=== PATIENT | male | born 1960 | race Caucasian/White ===

== ENCOUNTER 2019-12-17 09:45 | Outpatient (CLI) | payer OTHER, SELFPAY ==
[2019-12-17 10:32] LABS: Basophils Absolute Auto 0.1 K/mm3 (0.0-0.1); Basophils Percent Auto 1.2 % (0.2-1.2); Eosinophils Absolute Auto 0.3 K/mm3 (0-0.3); Eosinophils Percent Auto 3.7 % (0-4.4); Hematocrit 44.1 % (42.0-52.0); Hemoglobin 15.1 g/dL (14.0-18.0); Immature Granulocyte Absolute 0.03 K/mm3 (0.00-0.031); Immature Granulocyte Percent A 0.4 % (0-0.5); Lymphocytes Absolute Auto 2.58 K/mm3 (0.9-3.2); Lymphocytes Percent Auto 33.3 % (18.3-44.2); Mean Corpuscular HGB Conc 34.2 g/dl (32-36); Mean Corpuscular Hemoglobin 30.5 pg (26-34); Mean Corpuscular Volume 89.1 fl (80-100); Mean Platelet Volume 9.8 fl (7.4-10.4); Monocytes Absolute Auto 0.6 K/mm3 (0.1-0.6); Monocytes Percent Auto 7.2 % (2.6-8.5); Neutrophils Absolute Auto 4.2 K/mm3 (1.3-6.7); Neutrophils Percent Auto 54.2 % (45.5-73.1); Platelet Count Result 356 k/mm3 (150-375); Red Blood Count 4.95 M/mm3 (4.6-6.20); Red Cell Distribution Width 13.9 % (11.5-14.5); White Blood Count 7.8 K/mm3 (4.5-10.0)
[2019-12-17 10:50] LABS: Alanine Aminotransferase 27 U/L (4-50); Albumin Level 4.7 g/dL (3.5-5.1); Alkaline Phosphatase 72 U/L (38-126); Anion Gap 8 mmol/L (8-16); Aspartate Amino Transferase 29 U/L (17-59); Bilirubin,Total 0.6 mg/dL (0.2-1.3); Blood Urea Nitrogen 11 mg/dL (9-20); Carbon Dioxide 23 mmol/L (22-30); Chloride 108 mmol/L (98-107); Cholesterol 238 mg/dL (0-200); Estimated Glomerular Filt Rate > 60; Glucose 98 mg/dL (75-110); HDL Direct 58 mg/dL; Potassium 4.4 mmol/L (3.4-5.0); Sodium 139 mmol/L (137-145); Triglycerides 135 mg/dL (<150)
[2019-12-17 11:01] LABS: LDL Cholesterol Direct 141 mg/dL
[2019-12-17 11:19] LABS: Prostate Specific Antigen 1.2 ng/mL (< OR = 4.0)
== END 2019-12-17 09:46 | disposition home or self-care (01) ==
PROVIDERS: PCP Internal Medicine; Referring Provider Nurse Practitioner; Visit Provider Clinical Nurse Specialist
DX: J44.9 Chronic obstructive pulmonary disease, unspecified (principal); Z12.5 Encounter for screening for malignant neoplasm of prostate
CPT/HCPCS: 36415; 80053; 80061; 84153; 85025; G0103

== ENCOUNTER 2020-11-28 18:12 | Emergency (ER) | payer OTHER, SELFPAY ==
--- NOTE | ~2020-11-28 | XR_ITS ---
EXAMINATION: XR hand LT min 3V DATE: 11/28/2020 18:29 INDICATION: Left thumb pain. Fall. TECHNIQUE: 3 views of left hand were obtained. COMPARISON: None. FINDINGS: Bone alignment is normal. No fracture. There is severe osteoarthritis of first carpometacar pal joint, moderate osteoarthritis of third metacarpophalangeal joint, second distal interphalangeal joint, and fifth proximal interphalangeal joint, and mild osteoarthritis of some the other metacarpop halangeal joints and interphalangeal joints. IMPRESSION: 1. Polyarticular osteoarthritis. Reviewed, dictated and finalized at location A.
--- NOTE | 2020-11-28 18:18 | ED.UPPEXIN ---
HPI - Extremity Injury (Upper) General Chief Complaint: Extremity Injury, Upper Stated Complaint: lt thumb inj Time Seen by Provider: 11/28/20 18:18 Source: patient, family and RN notes reviewed History of Present Illness HPI narrative: Patient is a 60-year-old male who presents the urgent care with a family member with complaints of left hand/thumb/wrist pain. Patient states that prior to arrival he was going up 3 steps on his back deck and fell backwards, catching himself with his left hand. Patient states he bent his thumb all the way backwards and is having a lot of pain in the thumb. Patient has not done anything [id number] for his pain since the incident. Also reports of a laceration to the right hand due to the fall. No other acute complaints. No acute distress noted. Patient and family member aware of the plan of care. Some parts of this dictation were generated by voice recognition software and may contain typographical and/or grammatical inaccuracies. Related Data Home Medications Medication Instructions Recorded Confirmed albuterol sulfate 90 mcg/actuation 2 puff INHALATION Q4H PRN g 07/09/20 aerosol inhaler amitriptyline 50 mg tablet 50 mg PO QHS 07/09/20 ibuprofen 200 mg tablet 400 mg PO .4-6 hrs PRN tablet 07/09/20 loratadine 10 mg capsule 10 mg PO DAILY 07/09/20 Allergies Allergy/AdvReac Type Severity Reaction Status Date / Time dill oil Allergy Severe ANAPHYLACTI Verified 06/16/19 07:42 C Penicillins Allergy Severe Anaphylaxis Verified 06/16/19 07:42 mold Allergy Intermediate SINUS Verified 06/16/19 07:42 DRAINAGE Review of Systems Review of Systems: CONSTITUTIONAL: Denies fever, chills, or sweats. EYES: Denies visual changes, redness, or discharge. ENT: Denies rhinorrhea, congestion, sore throat, or otalgia. CARDIOVASCULAR: Denies chest pain, palpitations, or edema. RESPIRATORY: Denies cough or dyspnea. GASTROINTESTINAL: Denies abdominal pain, nausea, vomiting, or diarrhea. GENITOURINARY: Denies dysuria or hematuria. SKIN: Reports of a laceration to the right hand. Denies rash or itching. MUSCULOSKELETAL: Reports of left thumb/wrist/hand pain due to fall NEUROLOGIC: Denies headache, numbness, or weakness. All other systems reviewed are negative, except as documented in HPI. 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 Surgical History Surgical History (Updated 06/13/19 @ 13:05 by Doris Mesa MA) H/O brain surgery Family History Family History (Updated 06/10/19 @ 13:34 by Nellie Zuniga CMA) Mother Patient's mother is in good health Sibling Patient's brother is in good health Father Family history of heart disease in male family member before age 55 Carotid artery stenosis CHF (congestive heart failure) Daughter Cerebrovascular accident Other Family history of allergic disorder Social History Social History Smoking status: Never smoker Alcohol intake: never Comments At the time of my signature, I reviewed and agree with the nursing past medical, surgical, social, and family history. There is no relevant family history pertinent to the patient complaint. Exam Narrative: GENERAL: This is a well-nourished, well-developed patient, in no apparent distress. HEAD: normocephalic, atraumatic. EYES: PERRL. Sclera clear/white. Vision is grossly intact. EARS: External ears normal NOSE: External nose normal with no obvious nasal discharge, nares without redness, no rhinorrhea. THROAT: Mucous membranes moist NECK: Neck supple CARDIOVASCULAR: Regular rate and rhythm RESPIRATORY: Clear to auscultation. Breath sounds equal bilaterally.
[2020-11-28 18:39] VITALS: BP 125/84; PULSE 95; RESP 18; TEMP 35.8; O2SAT 99
== END 2020-11-28 18:54 | disposition home or self-care (01) ==
PROVIDERS: Emergency Provider Nurse Practitioner Family; PCP Internal Medicine
DX: M18.9 Osteoarthritis of first carpometacarpal joint, unspecified (principal); S61.411A Laceration without foreign body of right hand, initial encounter; W10.9XXA Fall (on) (from) unspecified stairs and steps, initial encounter; M19.042 Primary osteoarthritis, left hand; J44.9 Chronic obstructive pulmonary disease, unspecified; F32.9 Major depressive disorder, single episode, unspecified; R01.1 Cardiac murmur, unspecified
CPT/HCPCS: 12002; 73130; 99213; G0463

== ENCOUNTER 2021-01-20 17:01 | Emergency (ER) | payer OTHER, SELFPAY ==
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
[2021-01-20 17:00] VITALS: BP 108/83; PULSE 79; RESP 16; TEMP 36.7; O2SAT 100
[2021-01-20] MEDS: KETOROLAC 30 MG/ML VIAL (*BKC) IV PUSH (18:24)
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
== END 2021-01-20 18:55 | disposition home or self-care (01) ==
PROVIDERS: Emergency Provider Emergency Medicine; PCP Internal Medicine
DX: S16.1XXA Strain of muscle, fascia and tendon at neck level, initial encounter (principal); R07.89 Other chest pain; J44.9 Chronic obstructive pulmonary disease, unspecified; M19.90 Unspecified osteoarthritis, unspecified site; F32.A Depression, unspecified; M24.411 Recurrent dislocation, right shoulder; M47.812 Spondylosis without myelopathy or radiculopathy, cervical region; V43.62XA Car passenger injured in collision with other type car in traffic accident, initial encounter
CPT/HCPCS: 71046; 71100; 72125; 73030; 73552; 96374; 99284; J1885

== ENCOUNTER 2022-01-23 23:19 | Inpatient (IN) | payer OTHER, SELFPAY ==
--- NOTE | ~2022-01-23 | CT_ITS ---
EXAMINATION: CT abdomen pelvis w con DATE: 01/24/2022 01:24 INDICATION: Low abdominal mass. TECHNIQUE: Computed tomography (CT) of the abdomen and pelvis was performed with 100 mL Omnipaque 350 intravenous contrast. Automated exposure control and iterative reconstruction technique were employe d. The dose-length product was 250.96 mGy-cm. COMPARISON: None. FINDINGS: The visualized portions of the lung bases demonstrate mild atelectasis. No pleural effusion . The heart size is normal. No pericardial effusion. There is a small right posterior diaphragmatic h ernia containing fat. There is a 5 mm cyst in the liver. The gallbladder, spleen, pancreas, adrenal g lands, and kidneys are normal. There is diverticulosis of the colon without evidence of diverticuliti s. The appendix is not visualized. There is a left-sided spigelian hernia containing small bowel. Sma ll bowel is dilated proximal to the hernia. There are no pathologically enlarged lymph nodes. There is no free intraperitoneal fluid. There is mild lumbar spondylosis. IMPRESSION: 1. Small bowel obstruction secondary to a left-sided spigelian hernia. Reviewed, dictated and finalized at location B.
[2022-01-23 23:35] VITALS: BP 126/81; PULSE 91; RESP 16; TEMP 36.4; O2SAT 100
[2022-01-24] VITALS (12 sets, daily range): BP systolic 116–144; BP diastolic 67–92; PULSE 62–88; RESP 10–22; TEMP 35.7–36.7; O2SAT 97–100
--- NOTE | 2022-01-24 00:18 | ED.ABDPAIN ---
HPI - Abdominal Pain General Chief Complaint: Abdominal Pain Stated Complaint: left inguinal edema Time Seen by Provider: 01/24/22 00:01 History of Present Illness HPI narrative: 61-year-old male presents emergency room for evaluation of left lower abdominal pain. Patient states the pain suddenly began earlier this evening. Patient is a history of a left inguinal hernia repair. Reports feeling a bump that is tender with palpation. Denies any nausea, vomiting diarrhea or constipation. Related Data Home Medications Medication Instructions Recorded Confirmed loratadine 10 mg capsule (Claritin 10 mg PO DAILY 07/09/20 08/01/21 Liqui-Gel) Allergies Allergy/AdvReac Type Severity Reaction Status Date / Time dill oil Allergy Severe ANAPHYLACTI Verified 01/23/22 23:39 C Penicillins Allergy Severe Anaphylaxis Verified 01/23/22 23:39 mold Allergy Intermediate SINUS Verified 01/23/22 23:39 DRAINAGE Review of Systems Review of Systems: CONSTITUTIONAL: Denies fever, chills, or sweats. EYES: Denies visual changes, redness, or discharge. ENT: Denies rhinorrhea, congestion, sore throat, or otalgia. CARDIOVASCULAR: Denies chest pain, palpitations, or edema. RESPIRATORY: Denies cough or dyspnea. GASTROINTESTINAL: Reports abdominal pain GENITOURINARY: Denies dysuria or hematuria. SKIN: Denies rash or itching. MUSCULOSKELETAL: Denies back pain, joint pain, or myalgia. NEUROLOGIC: Denies headache, numbness, dizziness, or weakness. PSYCHIATRIC: Denies anxiety or depression. 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 HEAD: Normocephalic, atraumatic. EYES: Conjunctivae normal, PERRLA and EOMI. CHEST: Clear to auscultation. No respiratory distress. No wheezes rales or rhonchi. No tenderness. HEART: Regular rate and rhythm. No murmur heard. Normal peripheral pulses. ABDOMEN: Soft, left lower palpable painful mass, nondistended, normal active bowel sounds. EXTREMITIES: Normal range of motion. No edema. No clubbing or cyanosis SKIN: Warm, dry, no rash. No noted wounds NEURO: No focal deficits. Alert and oriented x3. MAEW. CN's II-XI intact bilaterally, normal gait PSYCH: Cooperative. Normal mood and affect. Course Vital Signs Vital signs: Vital Signs Temperature 36.4 C 01/23/22 23:35 Pulse Rate 91 01/23/22 23:35 Respiratory Rate 16 01/23/22 23:35 Blood Pressure 126/81 01/23/22 23:35 Pulse Oximetry 100 01/23/22 23:35 Oxygen Delivery Room Air 01/23/22 23:35 Temperature 36.4 C 01/23/22 23:35 Pulse Rate 91 01/23/22 23:35 Respiratory Rate 16 01/23/22 23:35 Blood Pressure 126/81 01/23/22 23:35 Pulse Oximetry 100 01/23/22 23:35 Oxygen Delivery Room Air 01/23/22 23:35 MDM - Abdominal Pain Imaging Data Radiologist's impression: High-grade small bowel obstruction
[2022-01-24 00:37] LABS: Basophils Absolute Auto 0.1 K/mm3 (0.0-0.1); Basophils Percent Auto 0.9 % (0.2-1.2); Eosinophils Absolute Auto 0.2 K/mm3 (0-0.3); Eosinophils Percent Auto 2.5 % (0-4.4); Hematocrit 36.8 % (42.0-52.0); Hemoglobin 12.3 g/dL (14.0-18.0); Immature Granulocyte Absolute 0.01 K/mm3 (0.00-0.031); Immature Granulocyte Percent A 0.1 % (0-0.5); Lymphocytes Absolute Auto 2.52 K/mm3 (0.9-3.2); Mean Corpuscular HGB Conc 33.4 g/dl (32-36); Mean Corpuscular Hemoglobin 31.4 pg (26-34); Mean Corpuscular Volume 93.9 fl (80-100); Mean Platelet Volume 9.1 fl (7.4-10.4); Monocytes Absolute Auto 0.8 K/mm3 (0.1-0.6); Monocytes Percent Auto 9.3 % (2.6-8.5); Neutrophils Absolute Auto 4.6 K/mm3 (1.3-6.7); Neutrophils Percent Auto 56.2 % (45.5-73.1); Platelet Count Result 294 k/mm3 (150-375); Red Blood Count 3.92 M/mm3 (4.6-6.20); Red Cell Distribution Width 13.6 % (11.5-14.5); White Blood Count 8.1 K/mm3 (4.5-10.0)
[2022-01-24 00:48] LABS: Alanine Aminotransferase 21 U/L (6-50); Albumin Level 4.2 g/dL (3.5-5.1); Alkaline Phosphatase 46 U/L (38-126); Anion Gap 7 mmol/L (8-16); Aspartate Amino Transferase 31 U/L (17-59); Bilirubin,Total 0.6 mg/dL (0.2-1.3); Blood Urea Nitrogen 10 mg/dL (9-20); Calcium 8.8 mg/dL (8.4-10.2); Carbon Dioxide 26 mmol/L (22-30); Chloride 103 mmol/L (98-107); Estimated CRCL calculation 75 ml/min; Estimated Glomerular Filt Rate > 60; Glucose 101 mg/dL (65-110); Potassium 4.1 mmol/L (3.4-5.0); Sodium 136 mmol/L (137-145)
[2022-01-24] MEDS: HYDROmorphone HCL INJ (*CRX) 1 MG/ML SYR IV PUSH ×3 (00:54→09:00)
[2022-01-24] MEDS: SODIUM CHLORIDE 0.9% IV 1,000 ML 999 ML IV CONT (00:55)
[2022-01-24 02:18] LABS: Add Urine Microscopic? NO; Appearance Urine Clear (Clear); Bilirubin Urine Negative (Negative); Blood Urine Negative (Negative); Color Urine Yellow (Yellow); Glucose Urine UA Negative (Negative); Ketones Urine Negative (Negative); Leukocyte Esterase Ur Negative LEU/UL (Negative); Nitrate Urine Negative (Negative); Protein Urine Negative (Negative); Urobilinogen Urine Negative mg/dL (<2.0)
[2022-01-24 03:21] LABS: SARS-CoV-2 RNA PCR Negative
[2022-01-24] MEDS: SODIUM CHLORIDE 0.9% IV 1,000 ML 125 ML IV CONT ×2 (03:34→11:46)
--- NOTE | 2022-01-24 04:36 | ADMGEN ---
This patient, Jacky Arechiga, was admitted to [facility] Surg Room 309-01. Patient/family oriented to hospital policies and general routines including ID bracelet, bed and alarms, visiting hours, pain management, procedures, bathroom and other care routines, personal items, smoking policy, room service/diet, and visiting hours. Information on how to activate the Rapid Response Team has been discussed. Patient/Family are encouraged to report perceived risks to care and to ask questions if they do not understand what they are told or what they should do.
[2022-01-24 08:07] LABS: Hematocrit 35.9 % (42.0-52.0); Hemoglobin 12.1 g/dL (14.0-18.0); Mean Corpuscular HGB Conc 33.7 g/dl (32-36); Mean Corpuscular Hemoglobin 31.7 pg (26-34); Mean Platelet Volume 9.2 fl (7.4-10.4); Platelet Count Result 287 k/mm3 (150-375); Red Blood Count 3.82 M/mm3 (4.6-6.20); Red Cell Distribution Width 13.5 % (11.5-14.5); White Blood Count 9.4 K/mm3 (4.5-10.0)
[2022-01-24 08:26] LABS: Anion Gap 9 mmol/L (8-16); Blood Urea Nitrogen 8 mg/dL (9-20); Calcium 8.3 mg/dL (8.4-10.2); Carbon Dioxide 25 mmol/L (22-30); Chloride 104 mmol/L (98-107); Estimated CRCL calculation 280 ml/min; Estimated Glomerular Filt Rate > 60; Glucose 100 mg/dL (65-110); Potassium 3.8 mmol/L (3.4-5.0); Sodium 138 mmol/L (137-145)
[2022-01-24] MEDS: TOPIRAMATE 100 MG TABLET PO (09:00)
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
[2022-01-24] MEDS: LACTATED RINGERS 1,000 ML 30 ML IV CONT ×2 (13:00→16:17)
--- NOTE | 2022-01-24 13:22 | WPDANESEPPF ---
Anes - Initial Pre Proc Eval Procedure: Operation Date: 01/24/22 14:00 Proposed Procedures p Laparoscopic Repair Incarcerated Spighelian Hernia Left Lower Quadrant - Eagle Elder MD Date/Time: 01/24/22 13:22 Surgeon: Eagle Elder MD Pre Op Diagnosis: SBO Patient Data Age: 61 Gender: M Height: 1.78 m Weight: 67.3 kg Last Vital Signs Temp 36.7 C 01/24/22 13:00 Pulse 72 01/24/22 13:00 Resp 18 01/24/22 13:00 BP 134/83 01/24/22 13:00 Pulse Ox 98 01/24/22 13:00 O2 Del Method Room Air 01/24/22 13:00 Allergies Allergy/AdvReac Type Severity Reaction Status Date / Time dill oil Allergy Severe ANAPHYLACTI Verified 01/24/22 05:16 C Penicillins Allergy Severe Anaphylaxis Verified 01/24/22 05:16 mold Allergy Intermediate SINUS Verified 01/24/22 05:16 DRAINAGE Home Medications Medication Instructions Recorded Confirmed Type loratadine 10 mg capsule (Claritin 10 mg PO DAILY 07/09/20 01/24/22 History Liqui-Gel) sildenafil 50 mg tablet 50 mg PO DAILY PRN sexual activity 08/01/21 01/24/22 Rx #10 tabs cyclobenzaprine 10 mg tablet 10 mg PO TID PRN muscle spasm #20 08/22/21 01/24/22 Rx tabs albuterol sulfate 90 mcg/actuation 2 puff inhalation Q6H PRN 01/24/22 01/24/22 History aerosol inhaler Shortness Of Breath amitriptyline 50 mg tablet 50 mg HS 01/24/22 01/24/22 History naproxen 375 mg tablet 375 mg PO BID 01/24/22 01/24/22 History omeprazole 40 mg capsule,delayed 40 mg PO HS 01/24/22 01/24/22 History release topiramate 100 mg tablet 100 mg PO BID 01/24/22 01/24/22 History umeclidinium 62.5 mcg-vilanterol 1 inh inhalation DAILY 01/24/22 01/24/22 History 25 mcg/actuation powdr for inhalation (Anoro Ellipta) Laboratory Tests 01/24/22 01/24/22 01/24/22 00:32 00:32 02:04 WBC 8.1 K/mm3 K/mm3 (4.5-10.0) RBC 3.92 M/mm3 L M/mm3 (4.6-6.20) Hgb 12.3 g/dL L g/dL (14.0-18.0) Hct 36.8 % L % (42.0-52.0) MCV 93.9 fl fl (80-100) MCH 31.4 pg pg (26-34) MCHC 33.4 g/dl g/dl (32-36) RDW 13.6 % % (11.5-14.5) Plt Count 294 k/mm3 k/mm3 (150-375) MPV 9.1 fl fl (7.4-10.4) Immature Gran % (Auto) 0.1 % % (0-0.5) Neut % (Auto) 56.2 % % (45.5-73.1) Lymph % (Auto) 31.0 % % (18.3-44.2) Snyder % (Auto) 9.3 % H % (2.6-8.5) Eos % (Auto) 2.5 % % (0-4.4) Baso % (Auto) 0.9 % % (0.2-1.2) Lymph # (Auto) 2.52 K/mm3 K/mm3 (0.9-3.2) Snyder # (Auto) 0.8 K/mm3 H K/mm3 (0.1-0.6) Eos # (Auto) 0.2 K/mm3 K/mm3 (0-0.3) Baso # (Auto) 0.1 K/mm3 K/mm3 (0.0-0.1) Abs Immat Gran (auto) 0.01 K/mm3 K/mm3 (0.00-0.031) Absolute Neuts (auto) 4.6 K/mm3 K/mm3 (1.3-6.7) Absolute Nucleated RBC 0.0 K/mm3 K/mm3 (0.0-0.012) Nucleated RBC % 0.0 % % (0.0-0.2) Sodium 136 mmol/L L mmol/L (137-145) Potassium 4.1 mmol/L mmol/L (3.4-5.0) Chloride 103 mmol/L mmol/L (98-107) Carbon Dioxide 26 mmol/L mmol/L (22-30) Anion Gap 7 mmol/L L mmol/L (8-16) BUN 10 mg/dL mg/dL (9-20) Creatinine 0.90 mg/dL mg/dL (0.7-1.3) Estim Creat Clear Calc 75 ml/min ml/min Estimated GFR > 60 (59 - ) Glucose 101 mg/dL mg/dL (65-110) Calcium 8.8 mg/dL mg/dL (8.4-10.2) Total Bilirubin 0.6 mg/dL mg/dL (0.2-1.3) AST 31 U/L U/L (17-59) ALT 21 U/L U/L (6-50) Alkaline Phosphatase 46 U/L U/L (38-126) Total Protein 7.0 g/dL g/dL (6.3-8.2) Albumin 4.2 g/dL g/dL (3.5-5.1) Urine Color Yellow (Yellow) Urine Appearance Clear (Clear) Urine pH 6.0 (5.0-9.0) Ur Specific [place] 1.030 (1.001-1.035) Urine Protein Negative mg/dL
--- NOTE | 2022-01-24 13:42 | WPDHPUPDATE1 ---
History and Physical Update Update Date/Time: 01/24/22 13:42 History and Physical has been reviewed, including an updated exam of the patient. There are NO changes in the patient's condition. Risks, benefits, and alternatives have been discussed and questions answered. Patient agrees to proceed with procedure.
[2022-01-24] MEDS: ceFAZolin 2 GM/D5W 50 ML 2 GM/50 ML BAG IVPB (14:00)
[2022-01-24] MEDS: BUPIVACAINE/EPINEPHRINE 0.25% 50 ML VIAL INFILTRATE (14:42)
--- NOTE | 2022-01-24 16:37 | W.PM.PROC2 ---
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 CT scan showed an incarcerated spigelian hernia with small-bowel obstruction. He was given analgesics and admitted. Although his abdomen felt better he continued to have a non reducible incarcerated spigelian hernia. Findings A loop of ileum was incarcerated in the very small spigelian hernia defect. This was a partial rather than a full loop of small bowel consistent with a Sheriff's type hernia. There was a lot of properitoneal fat in the spigelian hernia defect as well. The defect was small measuring 1 cm x 0.6 cm in the left lower quadrant. There was no evidence of bowel infarction. Description of Procedure The patient was taken to surgery and induced into general anesthesia. The abdomen was prepped and draped. Initial trocar was a left subcostal 5 mm applied Medical optical trocar. We gained intraperitoneal access and then insufflated. I then placed a right-sided subcostal trocar under direct visualization. This was also a 5 mm trocar. In the mid abdomen another 5 mm trocar was placed. In the right lower quadrant a 10 11 trocar was placed. We placed the camera and operated exclusively through the right-sided trocars and insufflated through the left upper quadrant trocar. The hernia defect was easily found as there was small bowel incarcerated within it. Using a noncrushing type laparoscopic clamp, I gently reduced the small bowel. I took some photographs of it but it was clearly viable and was only part of the small bowel wall that was stuck in the hernia. I then reduced the peritoneum leading into the hernia defect. I incised this perineum and then reduced quite a bit of chronically incarcerated properitoneal fat. Once this tissue was entirely reduced, I took a photograph of this. I had also taken photographs of the defect with the incarcerated small bowel. I then divided the peritoneal attachments to the incarcerated hernia material and removed it from the abdomen. This was sent to the pathologist as spigelian hernia content. I then marked the location of the hernia defect on the skin using a 22 gauge needle and a marker. I chose the Ventralight ST 10 by 15 cm mesh. I placed the mesh so that it was obliquely oriented over the hernia defect. I marked on the ioban covering the skin the outline of mesh. I then marked the planned transfascial sutures on the skin. I placed 4 2-0 Stephenson-Jhonny sutures he quit distant on the Ventralight ST mesh for the transfascial sutures. I marked on the peritoneal side of the mesh so that I could oriented in the abdomen. I then rolled the mesh and introduced it into the abdominal cavity. I unrolled it and oriented it appropriately. Using the OpenRent suture pass device, I brought out each of the 4 transfascial sutures at the previously marked sites. I pulled up on the sutures as each were being passed. The positioning was good and the mesh was in good position and laying flat in the left lower quadrant. Once the transfascial sutures were in place, I stopped insufflation and evacuated CO2 from the abdominal cavity. I tied down each of the 4 transfascial sutures. I then reinsufflated the abdomen. Using the Opti Fix AT articulating absorbable fixation System I then tacked the mesh to the abdominal wall using the double crown technique. We did have some bleeding from 1 of the tacks. I removed this tack from the abdominal wall. The bleeding gently subsided. I did
[2022-01-24] MEDS: NAPROXEN 375 MG TABLET PO (17:54)
[2022-01-24] MEDS: LACTATED RINGERS 1,000 ML 80 ML IV CONT (17:54)
[2022-01-24] MEDS: MORPHINE SULFATE (*CRX) 2 MG/ML INJ IV PUSH (20:17)
[2022-01-24] MEDS: AMITRIPTYLINE HCL 25 MG TABLET 50 MG PO (20:35)
[2022-01-24] MEDS: HYDROcodone/acetaminophen (*CRX) 10-325 MG TABLET 1 TAB PO (21:40)
[2022-01-24] MEDS: MORPHINE SULFATE (*CRX) 4 MG/ML INJ IV PUSH (22:45)
[2022-01-25 03:06] VITALS: BP 136/76; PULSE 70; RESP 16; TEMP 36.2; O2SAT 99
[2022-01-25] MEDS: MORPHINE SULFATE (*CRX) 4 MG/ML INJ IV PUSH ×3 (06:13→14:33)
[2022-01-25 06:38] LABS: Hematocrit 29.4 % (42.0-52.0); Hemoglobin 9.9 g/dL (14.0-18.0); Mean Corpuscular HGB Conc 33.7 g/dl (32-36); Mean Corpuscular Hemoglobin 31.8 pg (26-34); Mean Corpuscular Volume 94.5 fl (80-100); Mean Platelet Volume 9.8 fl (7.4-10.4); Platelet Count Result 346 k/mm3 (150-375); Red Blood Count 3.11 M/mm3 (4.6-6.20); Red Cell Distribution Width 13.6 % (11.5-14.5); White Blood Count 13.3 K/mm3 (4.5-10.0)
[2022-01-25 07:04] LABS: Anion Gap 13 mmol/L (8-16); Blood Urea Nitrogen 11 mg/dL (9-20); Calcium 7.9 mg/dL (8.4-10.2); Carbon Dioxide 22 mmol/L (22-30); Chloride 100 mmol/L (98-107); Estimated CRCL calculation 81 ml/min; Estimated Glomerular Filt Rate > 60; Glucose 125 mg/dL (65-110); Potassium 3.9 mmol/L (3.4-5.0); Sodium 135 mmol/L (137-145)
--- NOTE | 2022-01-25 07:47 | WPDANESPN ---
Anes - Prog Note Post-Op Date/Time: 01/25/22 07:47 Cardiovascular status: normal Respiratory status: normal Airway patency: baseline Mental status: baseline Post-Op hydration status: normal Vital Signs: Last Vital Signs Temp 36.2 C L 01/25/22 03:06 Pulse 70 01/25/22 03:06 Resp 16 01/25/22 03:06 BP 136/76 01/25/22 03:06 Pulse Ox 99 01/25/22 03:06 O2 Del Method Room Air 01/24/22 20:00 O2 Flow Rate 6 01/24/22 16:45 Pain Score (VAS): 10/16 I/O: Intake & Output 01/24/22 01/24/22 01/25/22 15:59 23:59 07:59 Intake Total 1050 400 Output Total 575 450 Balance 1050 -175 -450 Laboratory Tests 01/25/22 06:00 01/25/22 06:00 01/24/22 01/24/22 01/25/22 08:00 08:00 06:00 WBC 9.4 13.3 H RBC 3.82 L 3.11 L Hgb 12.1 L 9.9 L Hct 35.9 L 29.4 L MCV 94.0 94.5 MCH 31.7 31.8 MCHC 33.7 33.7 RDW 13.5 13.6 Plt Count 287 346 MPV 9.2 9.8 Sodium 138 Potassium 3.8 Chloride 104 Carbon Dioxide 25 Anion Gap 9 BUN 8 L Creatinine 0.80 Estim Creat Clear Calc 280 Estimated GFR > 60 Glucose 100 Calcium 8.3 L 01/25/22 06:00 WBC RBC Hgb Hct MCV MCH MCHC RDW Plt Count MPV Sodium 135 L Potassium 3.9 Chloride 100 Carbon Dioxide 22 Anion Gap 13 BUN 11 Creatinine 0.80 Estim Creat Clear Calc 81 Estimated GFR > 60 Glucose 125 H Calcium 7.9 L Post-procedural complaints: nausea (which was treated in the PACU) Patient Feedback: Patient satisfied with anesthetic care.
[2022-01-25 08:00] VITALS: PULSE 70; RESP 16; O2SAT 99
[2022-01-25] MEDS: LORATADINE 10 MG TABLET PO (09:03)
[2022-01-25] MEDS: NAPROXEN 375 MG TABLET PO ×2 (09:03→16:56)
[2022-01-25] MEDS: PANTOPRAZOLE 40 MG TABLET PO (09:03)
[2022-01-25] MEDS: ENOXAPARIN 40 MG/0.4 ML SYRINGE SUB-Q (09:03)
[2022-01-25 14:27] VITALS: BP 117/64; PULSE 99; RESP 18; TEMP 36.2; O2SAT 100
[2022-01-25 19:06] VITALS: BP 127/65; PULSE 106; RESP 18; TEMP 36.1; O2SAT 98
[2022-01-25] MEDS: AMITRIPTYLINE HCL 25 MG TABLET 50 MG PO (21:04)
[2022-01-25] MEDS: HYDROcodone/acetaminophen (*CRX) 10-325 MG TABLET 1 TAB PO (21:07)
[2022-01-25 22:14] VITALS: BP 127/65; PULSE 106; RESP 18; TEMP 36.1; O2SAT 98
[2022-01-26 02:50] VITALS: BP 111/53; PULSE 93; RESP 18; TEMP 36.1; O2SAT 98
[2022-01-26 06:08] VITALS: BP 102/66; PULSE 94; RESP 18; TEMP 36.1; O2SAT 99
[2022-01-26 06:31] LABS: Hematocrit 21.6 % (42.0-52.0); Hemoglobin 7.4 g/dL (14.0-18.0); Mean Corpuscular HGB Conc 34.3 g/dl (32-36); Mean Corpuscular Hemoglobin 31.6 pg (26-34); Mean Corpuscular Volume 92.3 fl (80-100); Mean Platelet Volume 9.6 fl (7.4-10.4); Platelet Count Result 231 k/mm3 (150-375); Red Blood Count 2.34 M/mm3 (4.6-6.20); Red Cell Distribution Width 13.6 % (11.5-14.5); White Blood Count 7.6 K/mm3 (4.5-10.0)
[2022-01-26 06:49] LABS: Anion Gap 6 mmol/L (8-16); Blood Urea Nitrogen 10 mg/dL (9-20); Calcium 7.8 mg/dL (8.4-10.2); Carbon Dioxide 26 mmol/L (22-30); Chloride 106 mmol/L (98-107); Estimated CRCL calculation 73 ml/min; Estimated Glomerular Filt Rate > 60; Glucose 100 mg/dL (65-110); Sodium 138 mmol/L (137-145)
[2022-01-26 08:00] VITALS: PULSE 94; RESP 18; O2SAT 98
--- NOTE | 2022-01-26 08:29 | PM.DS ---
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: Qualifiers: Encounter type: sequela Qualified Code(s): S04.012S - Injury of optic nerve, left eye, sequela Code(s): S04.012A - Injury of optic nerve, left eye, initial encounter Status: Chronic (3) COPD (chronic obstructive pulmonary disease): Qualifiers: COPD type: unspecified COPD Qualified Code(s): J44.9 - Chronic obstructive pulmonary disease, unspecified Code(s): J44.9 - Chronic obstructive pulmonary disease, unspecified Status: Chronic DS: Summary Hospital Course Hospital Course: patient presented to the emergency room on 01/24/2022 with severe abdominal pain and a tender mass in the left lower quadrant. CT scan showed a left spigelian hernia that was incarcerated with a loop of bowel and small bowel obstruction. The patient was taken to surgery on the day of admission and underwent laparoscopic repair of the left spigelian hernia with 10 x 15 cm underlay mesh. He was having considerable amount of postoperative pain on postop day 1., requiring IV analgesics. He was much more comfortable on postop day 2. . He was more stable as for is ambulating and using only oral pain medication. He was able to be discharged on 01/26/2022 in improved condition. Status at Discharge Functional status at discharge: independent ambulation Overall status at discharge: patient is progressing back to baseline Time Spent with Patient Time attestation: Total time spent providing and/or coordinating discharge services: Time spent: Less than 30 minutes DS: Data Data Completed and Pending Pending studies at discharge: Pending at discharge 01/24/22 15:30 Surgical [PTH] Routine Labs on day of discharge: Labs from last 24 hours 01/26/22 01/26/22 06:20 06:20 WBC 7.6 RBC 2.34 L Hgb 7.4 L Hct 21.6 L MCV 92.3 MCH 31.6 MCHC 34.3 RDW 13.6 Plt Count 231 MPV 9.6 Sodium 138 Potassium 4.0 Chloride 106 Carbon Dioxide 26 Anion Gap 6 L BUN 10 Creatinine 0.90 Estim Creat Clear Calc 73 Estimated GFR > 60 Glucose 100 Calcium 7.8 L Discharge Plan Discharge Attending physician on discharge: Eagle Elder Discharging Clinician: Eagle Elder Anticipated Discharge Date/Time: 01/26/22 12:00 Patient Disposition: Home, Self-Care Activity: may shower, no straining and as tolerated Diet: as tolerated and regular Wound Care Instructions: incision open to air Discharge Instructions: Ambulate 3-4 x per day and as tolerated. No lifting over 15-20lbs. May bathe or shower. Stairs are OK. May drive a car in [address] Elder in 2 weeks Patient Instructions: Antibiotic Form, Pain Management (DC) Stand Alone Forms: General Discharge Information Follow-up/Referrals: Eagle Elder MD [Physician] - 2 Weeks ( call office for appointment) Discharge Medications: New hydrocodone-acetaminophen 5-325 mg tablet 1 - 2 tablet PO Q6H PRN (Reason: pain) Qty: 30 0RF Continued sildenafil 50 mg tablet 50 mg PO DAILY PRN (Reason: sexual activity) Qty: 10 0RF Rx Instructions: administer 30 minutes to 4 hours before activity loratadine [Claritin Liqui-Gel] 10 mg capsule 10 mg PO DAILY amitriptyline 50 mg tablet 50 mg HS albuterol sulfate 90 mcg/actuation HFA aerosol inhaler 2 puff INHALATION Q6H PRN (Reason: Shortness Of Breath) naproxen 375 mg tablet
[2022-01-26] MEDS: LORATADINE 10 MG TABLET PO (08:35)
[2022-01-26] MEDS: PANTOPRAZOLE 40 MG TABLET PO (08:35)
[2022-01-26] MEDS: ENOXAPARIN 40 MG/0.4 ML SYRINGE SUB-Q (08:35)
[2022-01-26] MEDS: NAPROXEN 375 MG TABLET PO (08:35)
[2022-01-26 10:51] VITALS: O2SAT 98
[2022-01-26 13:49] VITALS: BP 108/69; PULSE 88; RESP 20; TEMP 36.4; O2SAT 100
--- NOTE | 2022-01-26 16:31 | PM.PNGS ---
Progress Note: A&P Assessment and Plan (1) Dehiscence of closure of skin: Code(s): T81.31XA - Disruption of external operation (surgical) wound, not elsewhere classified, initial encounter Status: Acute Assessment and Plan: wound is clean. I removed the Exofin adhesive. I cleaned the entire area with peroxide to remove any old blood. The area was then dried. I used benzoin and half-inch Steri-Strips to reclosed the incision. It looked quite good. 4 x 4 dry gauze dressing with Medipore tape was applied. Patient was offered to stand the night so that this could be observed or go home. He would prefer to go home. Wound care instructions were given. I do not feel this will be a further problem for him as long as he follows the instructions. Subjective Subjective Date/Time Seen: 01/26/22 16:31 Interval history: Skin separation with bleeding right lower quadrant trocar site. When patient went to stand up, the right lower quadrant trocar site that the skin. Some old blood drained. He is seen regarding this new problem. Exam GI: Inspection: abdominal wall ecchymosis, incision ( 1-2 mm skin separation right lower quadrant trocar site. ) and other ( small amount of old blood on dressing) Objective Data Vital Signs Vital Signs: Vital Signs - 24 hr 01/25/22 19:06 01/25/22 22:14 01/25/22 20:00 Temperature 36.1 C L 36.1 C L Pulse Rate 106 H 106 H Respiratory Rate 18 18 Blood Pressure 127/65 127/65 Pulse Oximetry 98 98 Oxygen Delivery Room Air 01/26/22 02:50 01/26/22 06:08 01/26/22 10:51 Temperature 36.1 C L 36.1 C L Pulse Rate 93 94 Respiratory Rate 18 18 Blood Pressure 111/53 L 102/66 Pulse Oximetry 98 99 98 Oxygen Delivery Room Air 01/26/22 08:00 01/26/22 13:49 Temperature 36.4 C L Pulse Rate 94 88 Respiratory Rate 18 20 Blood Pressure 108/69 Pulse Oximetry 98 100 Oxygen Delivery Room Air Intake/Output Intake/Output: Intake & Output 01/23/22 01/24/22 01/25/22 01/26/22 23:59 23:59 23:59 23:59 Intake Total 2450 920 730 Output Total 575 3350 Balance 1873 -5667 730 Meds/Results Medications: Active Medications Generic Name Dose Route Start Last Admin Trade Name Freq PRN Reason Stop Dose Admin Acetaminophen 500 mg 01/24/22 17:21 Acetaminophen 500 Mg Tablet PO Q6H PRN Mild Pain (1-3) or Fever Hydrocodone Bitart/Acetaminophen 1 tab 01/24/22 17:21 Hydrocodone/Acetaminophen (*Crx) 5-325 Mg Tablet PO Q4H PRN Pain Rated 4-6 Hydrocodone Bitart/Acetaminophen 1 tab 01/24/22 17:21 01/25/22 21:07 Hydrocodone/Acetaminophen (*Crx) 10-325 Mg Tablet PO 1 tab Q4H PRN Administration Pain Rated 7-10 Amitriptyline HCl 50 mg 01/24/22 21:00 01/25/22 21:04 Amitriptyline Hcl 25 Mg Tablet PO 50 mg HS BRYAN Administration Cyclobenzaprine HCl 10 mg 01/24/22 17:21 Cyclobenzaprine Hcl 10 Mg Tablet PO TID PRN muscle spasm Enoxaparin Sodium 40 mg 01/25/22 09:00 01/26/22 08:35 Enoxaparin 40 Mg/0.4 Ml Syringe SUB-Q 40 mg DAILY BRYAN Administration Loratadine 10 mg 01/25/22 09:00 01/26/22 08:35 Loratadine 10 Mg Tablet PO 10 mg DAILY BRYAN Administration Morphine Sulfate 2 mg 01/24/22 17:21 01/24/22 20:17 Morphine Sulfate (*Crx) 2 Mg/Ml Inj IV PUSH 2 mg Q2H PRN Administration Pain Rated 4-6 Morphine Sulfate 4 mg 01/24/22 17:21 01/25/22 14:33 Morphine Sulfate (*Crx) 4 Mg/Ml Inj IV PUSH 4 mg Q2H PRN Administration Pain Rated 7-10 Naloxone HCl 0.1 mg 01/24/22 17:21 Naloxone Hcl 0.4 Mg/Ml Vial IV PUSH Q2M PRN Opiate Reversal Naproxen 375 mg 01/24/22 17:21 01/26/22 08:35 Naproxen 375 Mg Tablet PO 375 mg BID BRYAN Administration Ondansetron HCl 4 mg 01/24/22 02:40 Ondansetron Inj 4 Mg/2 Ml Vial IV PUSH Q4H PRN Nausea Pantoprazole Sodium 40 mg 01/25/22 09:00 01/26/22 08:35 Pantoprazole 40 Mg Tabl
[2022-01-26] MEDS: HYDROcodone/acetaminophen (*CRX) 10-325 MG TABLET 1 TAB PO (16:48)
[2022-01-26] MEDS: HYDROGEN PEROXIDE 3% SOLN(*SP) 473 ML BOTTLE (16:49)
== END 2022-01-26 17:12 | disposition home or self-care (01) | DRG 227 ==
LOC: ANHED 01-24 02:39 → ANH3MEDSUR 01-24 03:44
PROVIDERS: Admitting Provider Surgery; Emergency Provider Nurse Practitioner Family; PCP Internal Medicine; Visit Provider Surgery
PROC: 0WUF4JZ Supplement Abdominal Wall with Synthetic Substitute, Percutaneous Endoscopic Approach (ICD-10-PCS; principal; 2022-01-24 14:00)
DX: K43.6 Other and unspecified ventral hernia with obstruction, without gangrene (principal); S04.012 Injury of optic nerve, left eye; Y84.2 Radiological procedure and radiotherapy as the cause of abnormal reaction of the patient, or of later complication, without mention of misadventure at the time of the procedure; T81.31XA Disruption of external operation (surgical) wound, not elsewhere classified, initial encounter; J44.9 Chronic obstructive pulmonary disease, unspecified; Z20.822 Contact with and (suspected) exposure to COVID-19; Z23 Encounter for immunization; Z87.820 Personal history of traumatic brain injury; Z79.899 Other long term (current) drug therapy
CPT/HCPCS: 36415; 74177; 80048; 80053; 81003; 85025; 85027; 88302; 90471; 90686; 96361; 96374; 96375; 96376; 99285; A9270; C1713; C1781; C9803; G0008; G0378; G0379; J0360; J0690; J1100; J1170; J1650; J2250; J2270; J2405; J2704; J2710; J3010; J7030; J7120; Q9967; U0003; U0005

== ENCOUNTER 2022-02-16 07:57 | Outpatient (CLI) | payer OTHER, SELFPAY ==
--- NOTE | ~2022-02-16 | US_ITS ---
EXAMINATION: US soft tissue abdomen DATE: 02/16/2022 08:47 INDICATION: Bulge in the left lower quadrant post recent spigelian hernia repair TECHNIQUE: Multiple grayscale and Doppler ultrasound images of the region of concern at the left lowe r quadrant anterior abdominal wall were obtained. COMPARISON: CT dated 01/24/2022 FINDINGS: There are 2 very hypoechoic loculated fluid collections at the region of concern. The more superficia l measuring 5.6 x 2.7 x 5.1 cm is located between the deep and superficial layers of the abdominal wa ll musculature in the dependent location as a prior spigelian hernia. Similar very hypoechoic 6.3 x 2 .7 x 2.5 cm fluid collection situated between the inner peritoneal margin of the abdominal wall muscu lature and a linear echogenic structure likely representing the mesh repair. The mesh demonstrates sc alloped margins bulging away from several sites where it appears tacked down to the more superficial abdominal wall. No evident peristalsis or movement of the internal echogenic foci within the fluid co llections. More echogenic material can be seen moving within peristalsing bowels deep to the mesh rep air. IMPRESSION: 1. 2 loculated complex fluid collections likely representing hematomas, the deeper measuring 6.3 x 2. 7 x 2.5 cm situated between the mesh and the inner margin of the anterior abdominal wall and the seco nd measuring 5.6 x 2.7 x 5.1 cm is located within the abdominal wall at the site of the prior spigeli an hernia. No evident recurrent herniated bowel. Differential would include abscesses in the appropri ate clinical setting. Reviewed, dictated and finalized at location A. OR SOFTWARE ANALYST IMPRESSION: 1. 2 loculated complex fluid collections likely representing hematomas, the eliecer per measuring 6.3 x 2.7 x 2.5 cm situated between the mesh and the inner margin of the anterior abdominal wall and the second measuring 5.6 x 2.7 x 5.1 cm is located within the abdominal wall at the site of the prior spigelian hernia. No evident recurrent herniated bowel. Differential would include abscesses in the appropriate clinical setting.
== END 2022-02-16 07:58 | disposition home or self-care (01) ==
PROVIDERS: PCP Internal Medicine; Visit Provider Surgery
DX: R19.04 Left lower quadrant abdominal swelling, mass and lump (principal)
CPT/HCPCS: 76705

== ENCOUNTER 2022-03-20 06:35 | Outpatient (CLI) | payer OTHER, SELFPAY ==
--- NOTE | ~2022-03-20 | CT_ITS ---
EXAMINATION: CT abdomen pelvis wo con DATE: 03/20/2022 07:11 INDICATION: Left lower quadrant mass TECHNIQUE: Computed tomography (CT) of the abdomen and pelvis was performed without intravenous contr ast. The dose-length product (DLP) was 229.60 mGy-cm. Automated exposure control and iterative recons truction technique were employed. COMPARISON: 01/24/2022 FINDINGS: Minimal dependent atelectasis is present in the lung bases. The heart size is normal. The l iver, spleen, pancreas, gallbladder, and adrenal glands are normal. The kidneys are unremarkable. No pathologically enlarged abdominal or pelvic lymph nodes are identified. There is no free intraperiton eal gas or evidence of bowel obstruction. Colonic diverticulosis is present without evidence of diver ticulitis. There is a 3.7 x 1.9 cm mildly hyperdense fluid collection in the anterior abdominal wall of the left lower quadrant. There is an approximately 7.6 x 2.6 cm mildly hyperdense fluid collection in the left anterior pelvis. There is mild lumbar spondylosis. IMPRESSION: 1. Findings consistent with postoperative hematoma of the left lower quadrant and left lower abdomina l wall with slight improvement of the abdominal wall hematoma compared to the prior examination. Reviewed, dictated and finalized at location A. TRUCK DRIVER IMPRESSION: 1. Findings consistent with postoperative hematoma of the left lower quadrant a nd left lower abdominal wall with slight improvement of the abdominal wall merary nadja compared to the prior examination.
== END 2022-03-20 06:36 | disposition home or self-care (01) ==
PROVIDERS: PCP Internal Medicine; Visit Provider Surgery
DX: R10.32 Left lower quadrant pain (principal); R19.04 Left lower quadrant abdominal swelling, mass and lump
CPT/HCPCS: 74176

== ENCOUNTER 2022-05-02 12:43 | Outpatient (RCR) | payer OTHER, SELFPAY ==
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
--- NOTE | 2022-07-05 08:54 | PTOPDC ---
Assessment and note entered by Baldo Pandya, PT, DPT Evaluation Information Assessment Status Discharge - Pt Not Present Diagnosis R shoulder pain Onset Jan Subjective Information Called and spoke with patient, he states she still does not have an orthopedic appointment set up to address his inferior dislocation. Assessment PT Clinical Summary Jacky was evaluated on 05/02/22 and did not complete any treatment. He will be discharged at this time. If he needs therapy at a later date he will need a new order. Plan of Care PT Services Indicated Yes Treatment Frequency and discharge Duration
== END 2022-07-05 10:25 | disposition home or self-care (01) ==
LOC: ANHGOSHPT 12:43
PROVIDERS: PCP Internal Medicine; Visit Provider Nurse Practitioner
DX: M25.511 Pain in right shoulder (principal)
CPT/HCPCS: 97112; 97161

== ENCOUNTER 2022-05-02 13:22 | Outpatient (CLI) | payer OTHER, SELFPAY ==
[2022-05-02 20:30] LABS: Alanine Aminotransferase 20 U/L (6-50); Albumin Level 3.9 g/dL (3.5-5.1); Alkaline Phosphatase 53 U/L (38-126); Anion Gap 5 mmol/L (8-16); Aspartate Amino Transferase 34 U/L (17-59); Bilirubin,Total 0.4 mg/dL (0.2-1.3); Blood Urea Nitrogen 13 mg/dL (9-20); Calcium 8.7 mg/dL (8.4-10.2); Carbon Dioxide 26 mmol/L (22-30); Chloride 105 mmol/L (98-107); Cholesterol 164 mg/dL (0-200); Estimated Glomerular Filt Rate > 60; Glucose 103 mg/dL (65-110); HDL Direct 75 mg/dL; LDL Cholesterol Direct 68 mg/dL; Potassium 4.9 mmol/L (3.4-5.0); Prostate Specific Antigen 1.1 ng/mL (< OR = 4.0); Sodium 136 mmol/L (137-145); Triglycerides 66 mg/dL (<150)
[2022-05-02 21:13] LABS: Basophils Absolute Auto 0.1 K/mm3 (0.0-0.1); Basophils Percent Auto 0.8 % (0.2-1.2); Eosinophils Absolute Auto 0.1 K/mm3 (0-0.3); Eosinophils Percent Auto 0.7 % (0-4.4); Hematocrit 37.7 % (42.0-52.0); Hemoglobin 12.6 g/dL (14.0-18.0); Immature Granulocyte Absolute 0.02 K/mm3 (0.00-0.031); Immature Granulocyte Percent A 0.2 % (0-0.5); Lymphocytes Absolute Auto 1.64 K/mm3 (0.9-3.2); Lymphocytes Percent Auto 19.2 % (18.3-44.2); Mean Corpuscular HGB Conc 33.4 g/dl (32-36); Mean Corpuscular Hemoglobin 30.2 pg (26-34); Mean Corpuscular Volume 90.4 fl (80-100); Monocytes Absolute Auto 0.8 K/mm3 (0.1-0.6); Monocytes Percent Auto 8.9 % (2.6-8.5); Neutrophils Percent Auto 70.2 % (45.5-73.1); Platelet Count Result 368 k/mm3 (150-375); Red Blood Count 4.17 M/mm3 (4.6-6.20); Red Cell Distribution Width 13.4 % (11.5-14.5); White Blood Count 8.5 K/mm3 (4.5-10.0)
== END 2022-05-02 13:23 | disposition home or self-care (01) ==
LOC: ANHGOSHLAB 13:23
PROVIDERS: PCP Internal Medicine; Visit Provider Nurse Practitioner
DX: Z13.220 Encounter for screening for lipoid disorders (principal); Z12.5 Encounter for screening for malignant neoplasm of prostate; Z13.29 Encounter for screening for other suspected endocrine disorder
CPT/HCPCS: 36415; 80053; 80061; 84153; 85025; G0103

== ENCOUNTER 2022-05-16 09:34 | Outpatient (CLI) | payer OTHER, SELFPAY ==
[2022-05-16 10:02] LABS: Basophils Absolute Auto 0.1 K/mm3 (0.0-0.1); Eosinophils Absolute Auto 0.2 K/mm3 (0-0.3); Hematocrit 40.4 % (42.0-52.0); Hemoglobin 13.6 g/dL (14.0-18.0); Immature Granulocyte Absolute 0.02 K/mm3 (0.00-0.031); Immature Granulocyte Percent A 0.3 % (0-0.5); Lymphocytes Absolute Auto 1.75 K/mm3 (0.9-3.2); Lymphocytes Percent Auto 24.1 % (18.3-44.2); Mean Corpuscular HGB Conc 33.7 g/dl (32-36); Mean Corpuscular Hemoglobin 30.2 pg (26-34); Mean Corpuscular Volume 89.8 fl (80-100); Mean Platelet Volume 9.1 fl (7.4-10.4); Monocytes Absolute Auto 0.5 K/mm3 (0.1-0.6); Monocytes Percent Auto 6.6 % (2.6-8.5); Neutrophils Absolute Auto 4.7 K/mm3 (1.3-6.7); Platelet Count Result 410 k/mm3 (150-375); Red Cell Distribution Width 14.4 % (11.5-14.5); White Blood Count 7.3 K/mm3 (4.5-10.0)
[2022-05-16 10:23] LABS: Iron 84 ug/dL (49-181)
[2022-05-16 10:34] LABS: Percent Iron Saturation 24 % (20-50)
== END 2022-05-16 09:35 | disposition home or self-care (01) ==
LOC: ANHLAB 09:35
PROVIDERS: PCP Internal Medicine; Visit Provider Nurse Practitioner
DX: D64.9 Anemia, unspecified (principal)
CPT/HCPCS: 36415; 82728; 83540; 83550; 85025

== ENCOUNTER 2022-06-30 01:28 | Day surgery (SDC) | payer OTHER, SELFPAY ==
[2022-06-19 13:53] VITALS: BMI 19.5
--- NOTE | 2022-06-30 09:03 | WPDANESEPPF ---
Anes - Initial Pre Proc Eval Procedure: Operation Date: 06/30/22 10:30 Proposed Procedures p Screening Colonoscopy - Willie Mays MD Date/Time: 06/30/22 09:03 Surgeon: Willie Mays MD Pre Op Diagnosis: neoplasm screening Patient Data Age: 62 Gender: M Height: 1.8 m Weight: 63.6 kg Allergies Allergy/AdvReac Type Severity Reaction Status Date / Time dill oil Allergy Severe ANAPHYLACTI Verified 06/30/22 09:36 C Penicillins Allergy Severe Anaphylaxis Verified 06/30/22 09:36 mold Allergy Intermediate SINUS Verified 06/30/22 09:36 DRAINAGE Home Medications Medication Instructions Recorded Confirmed Type loratadine 10 mg capsule (Claritin 10 mg PO DAILY 07/09/20 06/30/22 History Liqui-Gel) sildenafil 50 mg tablet 50 mg PO DAILY PRN sexual activity 08/01/21 06/30/22 Rx #10 tabs albuterol sulfate 90 mcg/actuation 2 puff inhalation Q6H PRN 01/24/22 06/30/22 History aerosol inhaler Shortness Of Breath topiramate 100 mg tablet 100 mg PO BID 01/24/22 06/30/22 History omeprazole 40 mg capsule,delayed 40 mg PO HS #90 caps 04/04/22 06/30/22 Rx release acetaminophen 325 mg capsule 325 mg PO Q6H PRN shaking 04/20/22 06/30/22 History (Tylenol) umeclidinium 62.5 mcg-vilanterol 1 inh inhalation DAILY #14 ea 05/29/22 06/30/22 Rx 25 mcg/actuation powdr for inhalation (Anoro Ellipta) tizanidine 4 mg tablet 4 mg PO BID PRN muscle spasticity 06/01/22 06/30/22 Rx #20 tabs naproxen 375 mg tablet See Rx Instructions .Route 06/07/22 06/30/22 Rx .COMPLEX #60 tabs amitriptyline 50 mg tablet 50 mg PO HS #90 tabs 06/20/22 06/30/22 Rx Patient hx anesthesia problems: none Family hx anesthesia problems: none Results Review: All pre-operative results and documents have been reviewed as part of the pre-operative evaluation. 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 Surgical History Surgical History H/O brain surgery H/O shoulder replacement (~04/2021) S/P spigelian hernia repair, follow-up exam LAP repair left spigelian hernia with obstruction w/ mesh on 01/24/22 Family History Family History Mother Patient's mother is in good health Sibling Patient's brother is in good health Father Family history of heart disease in male family member before age 55 Carotid artery stenosis CHF (congestive heart failure) Daughter Cerebrovascular accident Other Family history of allergic disorder Social History Social History (Updated 04/20/22 @ 13:35 by Alize Leon) Social History: Caffeine-soda Smoking status: Never smoker Tobacco type: smokeless tobacco Smokeless tobacco user: chewing tobacco Alcohol intake: never Substance use: current Substance use type: marijuana Other substance usage details: once a month Last use: 06/18/22 Lack of Transportation: No Lack of Food: Sometimes True Current Housing: I Have Housing Concerned About Future Housing: No Difficulty Paying Gas/Electric Bills: YES Difficulty Paying for Meds: No Living arrangements: with roommate(s) Spiritual care concerns: No Anes - Eval Final PreProcedure Day of Procedure 06/30/22 09:03 Patient weight: normal Heart: regular rate and rhythm Lungs: clear to auscultation and normal air movement Airway: Mallampati scale class II Neurological: alert and oriented Last oral intake: >/= 8 hours ASA classification: III Emergent: no Anesthetic plan: proceed Anesthesia type and m
[2022-06-30 09:39] VITALS: BP 104/67; PULSE 70; RESP 17; TEMP 36.2; O2SAT 100; BMI 17.4
[2022-06-30] MEDS: LACTATED RINGERS 1,000 ML 150 ML IV CONT (09:47)
--- NOTE | 2022-06-30 10:06 | PM.HPGS ---
History of Present Illness History of Present Illness Consent: Risks, benefits, and alternatives have been discussed and questions answered. Patient agrees to proceed with procedure. Chief complaint: neoplasm screening Narrative: Jacky Arechiga is a 62 year old male here for first screening colonoscopy Review of Systems Constitutional: Constitutional: Denies headache(s) and Denies weakness Eyes: Eyes: Denies blurry vision ENT: Reports Normal hearing present, Denies headache(s) and Denies neck pain Cardiovascular: Cardiovascular: Denies chest pain and Denies dyspnea Respiratory: Respiratory: Denies dyspnea Gastrointestinal: Gastrointestinal: Reports no additional gastrointestinal complaints Genitourinary: Genitourinary: Denies dysuria Musculoskeletal: Musculoskeletal: Denies neck pain Integumentary/Breasts: Skin/Breast: Denies dry skin Neurologic: Reports Normal hearing present, Denies headache(s) and Denies weakness Psychiatric: Psychiatric: Denies anxiety Endocrine: Endocrine: Denies change in body appearance Hematologic/Lymphatic: Hematologic/Lymphatic: Denies easy bleeding Allergic/Immunologic: Allergic/Immunologic: Denies urticaria PMF Past Medical History Medical History (Updated 06/30/22 @ 09:03 by Arthur Smith DO) Bronchitis Collar bone fracture COPD (chronic obstructive pulmonary disease) Cranial nerve disorder Depression Dog bite Erectile dysfunction GERD (gastroesophageal reflux disease) Headache Hernia High serum cholestanol Laceration of right hand Murmur Osteoarthritis 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 Surgical History Surgical History H/O brain surgery H/O shoulder replacement (~04/2021) S/P spigelian hernia repair, follow-up exam LAP repair left spigelian hernia with obstruction w/ mesh on 01/24/22 Family History Family History Mother Patient's mother is in good health Sibling Patient's brother is in good health Father Family history of heart disease in male family member before age 55 Carotid artery stenosis CHF (congestive heart failure) Daughter Cerebrovascular accident Other Family history of allergic disorder Social History Social History (Updated 04/20/22 @ 13:35 by Alize Leon) Social History: Caffeine-soda Smoking status: Never smoker Tobacco type: smokeless tobacco Smokeless tobacco user: chewing tobacco Alcohol intake: never Substance use: current Substance use type: marijuana Other substance usage details: once a month Last use: 06/18/22 Lack of Transportation: No Lack of Food: Sometimes True Current Housing: I Have Housing Concerned About Future Housing: No Difficulty Paying Gas/Electric Bills: YES Difficulty Paying for Meds: No Living arrangements: with roommate(s) Spiritual care concerns: No Meds Home Medications and Allergies Home Medications Medication Instructions Recorded Confirmed Type loratadine 10 mg capsule (Claritin 10 mg PO DAILY 07/09/20 06/30/22 History Liqui-Gel) sildenafil 50 mg tablet 50 mg PO DAILY PRN sexual activity 08/01/21 06/30/22 Rx #10 tabs albuterol sulfate 90 mcg/actuation 2 puff inhalation Q6H PRN 01/24/22 06/30/22 History aerosol inhaler Shortness Of Breath topiramate 100 mg tablet 100 mg PO BID 01/24/22 06/30/22 History omeprazole 40 mg capsule,delayed 40 mg PO HS #90 caps 04/04/22 06/30/22 Rx release acetaminophen 325 mg capsule 325 mg PO Q6H PRN shaking 04/20/22 06/30/22 History (Tylenol) umeclidinium 62.5 mcg-vilanterol 1 inh inhalation DAILY #14 ea 05/29/22 06/30/22 Rx 25 mcg/actuation powdr for inhalation (Anoro Ellipta) tizanidine 4 mg tablet 4 mg PO BID PRN muscle spasticity 06/01/22 06/30/22 Rx #20 tabs naproxen 375 mg tablet See Rx Instructions .Route 06/07/22 06/30/22 Rx .COMPLEX #60 tabs amitripty
[2022-06-30 10:28] VITALS: BP 80/48; PULSE 73; RESP 14; O2SAT 100
[2022-06-30 10:38] VITALS: BP 84/50; PULSE 69; RESP 18; O2SAT 98
[2022-06-30 10:48] VITALS: BP 129/70; PULSE 70; RESP 18; O2SAT 98
== END 2022-06-30 10:54 | disposition home or self-care (01) ==
PROVIDERS: PCP Internal Medicine; Visit Provider Internal Medicine Gastroenterology
PROC: 0DJD8ZZ Inspection of Lower Intestinal Tract, Via Natural or Artificial Opening Endoscopic (ICD-10-PCS; CPT 45378; principal; 2022-06-30 10:30)
DX: Z12.11 Encounter for screening for malignant neoplasm of colon (principal); K57.30 Diverticulosis of large intestine without perforation or abscess without bleeding; K64.8 Other hemorrhoids; J44.9 Chronic obstructive pulmonary disease, unspecified; K21.9 Gastro-esophageal reflux disease without esophagitis; F32.A Depression, unspecified; E78.00 Pure hypercholesterolemia, unspecified; Z79.51 Long term (current) use of inhaled steroids; F17.220 Nicotine dependence, chewing tobacco, uncomplicated
CPT/HCPCS: 45378; J2704; J7120

== ENCOUNTER 2022-08-30 13:12 | Outpatient (CLI) | payer OTHER, SELFPAY ==
--- NOTE | ~2022-08-30 | XR_ITS ---
Right foot Technique: AP, oblique, and lateral views were obtained. Clinical History: Pain Findings: No acute fracture or dislocation is seen. There is severe osteoarthritis of the first metat arsophalangeal joint, with joint space narrowing, large osteophyte formation, and mild reactive scler osis. Remaining joint spaces are preserved. Soft tissues are unremarkable. Impression: Severe osteoarthritis of the first metatarsophalangeal joint. Reviewed, dictated and finalized at location M. Impression: Severe osteoarthritis of the first metatarsophalangeal joint.
--- NOTE | ~2022-08-30 | XR_ITS ---
Left foot Technique: AP, oblique, and lateral views were obtained. Clinical History: Pain Findings: No acute fracture or dislocation is seen. Osseous alignment is anatomic. There is minimal d egenerative change of the first metatarsophalangeal joint. Remaining joint spaces are preserved. Soft tissues are unremarkable. Impression: . Minimal degenerative change of the first metatarsophalangeal joint. Reviewed, dictated and finalized at location M. Impression: . Minimal degenerative change of the first metatarsophalangeal joint.
== END 2022-08-30 13:13 | disposition home or self-care (01) ==
PROVIDERS: PCP Internal Medicine; Visit Provider Nurse Practitioner
DX: M19.071 Primary osteoarthritis, right ankle and foot (principal); M19.072 Primary osteoarthritis, left ankle and foot
CPT/HCPCS: 73630

== ENCOUNTER 2022-11-21 11:00 | Outpatient (RCR) | payer OTHER, SELFPAY ==
--- NOTE | 2022-10-24 14:41 | OPREHPOC ---
Outpatient Therapy Plan of Care This is a Multidisciplinary Plan of Care that may contain components documented by all disciplines (PT, OT, and ST.) PT Problem 1 PT Problem #1 Knowledge Deficit PT Goal 1 Goal Independent with HEP Target Visit 8 PT Problem 2 PT Problem #2 Impaired Range of Motion PT Goal 1 Goal increase R shoulder flexion and abduction to 125 degrees Target Visit 8 PT Problem 3 PT Problem #3 Impaired Strength PT Goal 1 Goal Improve scapular stabilizer strength to 4+/5 Target Visit 8
--- NOTE | 2022-10-24 14:41 | PTOPEVAL1 ---
Assessment and note entered by Dimitris Youssef, PT Evaluation Information Assessment Status Evaluation Diagnosis Pain in R shoulder, Separation of R AC joint. Subjective Information Patient reports injuring his shoulder resulting in the scapula to be no longer connected to the clavicle. The patient has surgery he believes in [address] Walter Jacobo. Patient reports issues since then as has tried physical therapy and seeing his surgeon. Patient states the surgeon wants to do a round of physical therapy before thinking about further surgical intervention. Patient also wants it documented in the medical record that he has stopped using tobacco. Reported Pain Level Pain Score 8: Self Report Assessment PT Clinical Summary Nehemiah is a 62 year old female coming into the clinic with a diagnosis of R shoulder pain and separation of the R AC joint. Patient has visual non-union of the AC joint along with decreased range of motion of the R shoulder compared to the L shoulder and weakness in his scapular muscles to stabilize the shoulder blade. Physical therapy will work on improving deficits with strengthening , stretching, manual therapy, and modalities. Plan of Care Interventions Electrical Stimulation,Gait Training,Hot Pack/Cold Pack,Manual Therapy,Neuro Re-education,Patient/ Caregiver Education,Therapeutic Activities, Therapeutic Exercise,Ultrasound Other Interventions cupping, taping, IASTM PT Services Indicated Yes Treatment Frequency and 2x/wk for 4 weeks Duration These treatments will address the objective and functional deficits as defined above. The patient will be advanced safely and appropriately in order for the patient to progress towards his/her prior level of function. Additional exercises will be introduced and as well as a comprehensive home exercise program upon discharge, if needed, ?to ensure carryover of functional gains achieved in the clinic. This treatment plan has been reviewed and agreement upon by the patient.
--- NOTE | 2022-11-21 12:42 | PTOPDC ---
Assessment and note entered by Dimitris Youssef, PT Evaluation Information Assessment Status Discharge Diagnosis Pain in R shoulder, Separation of R AC joint. Subjective Information Patient reports he is still having pain between 6- 8.5/10 especially with any overhead lifting, reports he feels that he can recruit his shoulder blade more and that allows him to be able to do things more easy in front of and close to him, but anything where he has to reach is moderate to severe pain and still unable to lift over his head . States he is seeing his orthopedic doctor on SundayNov 24. Reported Pain Level Pain Score 6: Self Report Additional Pain Score Comments Patient has increased pain with over head lifting, but reports better if he stays close to his body. Reports no change in pain from beginning of therapy just that it is there. Assessment PT Clinical Summary Nehemiah is a 62 year old male coming into the clinic with a diagnosis of R shoulder pain and separation of the R AC joint. Patient was evaluated on 10/24 and has attended 9 visits. The patient has made minimal gains in range of motion pain, or strength although he reports it does feels better. At this time physical therapist recommends talking to his surgeon about possible less conservative treatment options. Discharged from skilled physical therapy. Plan of Care PT Services Indicated No
== END 2022-11-21 14:31 | disposition home or self-care (01) ==
LOC: ANHPT 11:00
PROVIDERS: PCP Internal Medicine; Visit Provider Nurse Practitioner
DX: M25.511 Pain in right shoulder (principal); R20.0 Anesthesia of skin; G89.29 Other chronic pain
CPT/HCPCS: 97110; 97140; 97161; 97530

== ENCOUNTER 2022-12-18 10:21 | Emergency (ER) | payer OTHER, SELFPAY ==
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
[2022-12-18 11:23] VITALS: BP 115/83; PULSE 60; RESP 18; TEMP 36.6; O2SAT 100
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
[2022-12-18] MEDS: HYDROcodone/acetaminophen (*CRX) 7.5-325 MG TABLET 1 TAB PO (13:54)
== END 2022-12-18 15:50 | disposition home or self-care (01) ==
PROVIDERS: Emergency Provider Emergency Medicine; PCP Internal Medicine
DX: S13.9XXA Sprain of joints and ligaments of unspecified parts of neck, initial encounter (principal); V49.40XA Driver injured in collision with unspecified motor vehicles in traffic accident, initial encounter; Z79.51 Long term (current) use of inhaled steroids; J44.9 Chronic obstructive pulmonary disease, unspecified; K21.9 Gastro-esophageal reflux disease without esophagitis; F32.A Depression, unspecified; E78.00 Pure hypercholesterolemia, unspecified; F17.220 Nicotine dependence, chewing tobacco, uncomplicated; F12.90 Cannabis use, unspecified, uncomplicated
CPT/HCPCS: 70450; 72125; 99284; A9270

== ENCOUNTER 2023-11-23 12:56 | Outpatient (CLI) | payer OTHER, SELFPAY ==
--- NOTE | ~2023-11-23 | CT_ITS ---
EXAMINATION: CT brain wo/w con DATE: 11/23/2023 13:32 INDICATION: Frequent severe headaches TECHNIQUE: Computed tomography (CT) of the head was performed without and with 100 mL Omnipaque-350 i ntravenous contrast. Sagittal and coronal reconstructions were performed. The mA was adjusted accordi ng to patient size. Iterative reconstruction technique was employed. The dose-length product was 1210 .67 mGy-cm. COMPARISON: head CT dated 12/18/22 FINDINGS: No acute intracranial hemorrhage, acute infarction or abnormal extra axial fluid collection. Ventricl es are normal and symmetric. No mass/mass effect. No abnormally enhancing brain lesions on the postco ntrast imaging. The right vertebral artery is dominant. Represent a subtle supply the basilar artery with the smaller caliber left vertebral artery terminating at the left posterior inferior cerebellar artery. The right P1 and bilateral A1 segments are patent. The left posterior cerebral artery supplie d via a patent left posterior commuting artery. There also is a patent anterior to indicating artery. Cerebral arterial arborization appears symmetric. Chronic bilateral fracture at the medial wall of t he right orbit. Orbits are otherwise normal. Prominent mucosal thickening the bilateral ethmoid and l eft maxillary sinuses.. There are some bubbly mucus in the left maxillary sinus which can be seen wit h acute sinusitis. Mastoid air cells and middle ear cavities are clear. IMPRESSION: 1. Normal brain with no acute intracranial process or abnormally enhancing brain lesions. 2. Extensive sinus disease with probably mucus in the left maxillary sinus suggesting acute sinusitis . Reviewed, dictated and finalized at location A. IMPRESSION: 1. Normal brain with no acute intracranial process or abnormally enhancing brai n lesions. 2. Extensive sinus disease with probably mucus in the left maxillary sinus sugg esting acute sinusitis.
[2023-11-23 13:27] LABS: Estimated Glomerular Filt Rate > 60
== END 2023-11-23 12:57 | disposition home or self-care (01) ==
LOC: ANHIMG 13:00
PROVIDERS: PCP Internal Medicine; Visit Provider Psychiatry & Neurology Neurology
DX: G43.009 Migraine without aura, not intractable, without status migrainosus (principal); J32.9 Chronic sinusitis, unspecified
CPT/HCPCS: 70470; Q9967

== ENCOUNTER 2024-06-20 11:28 | Outpatient (CLI) | payer OTHER, SELFPAY ==
[2024-06-20 12:11] LABS: Basophils Absolute Auto 0.1 K/mm3 (0.0-0.1); Basophils Percent Auto 1.5 % (0.2-1.2); Eosinophils Absolute Auto 0.2 K/mm3 (0-0.3); Eosinophils Percent Auto 2.8 % (0-4.4); Hematocrit 37.5 % (42.0-52.0); Hemoglobin 12.6 g/dL (14.0-18.0); Immature Granulocyte Absolute 0.02 K/mm3 (0.00-0.031); Immature Granulocyte Percent A 0.3 % (0-0.5); Lymphocytes Absolute Auto 1.78 K/mm3 (0.9-3.2); Lymphocytes Percent Auto 23.6 % (18.3-44.2); Mean Corpuscular HGB Conc 33.6 g/dl (32-36); Mean Corpuscular Hemoglobin 30.4 pg (26-34); Mean Corpuscular Volume 90.6 fl (80-100); Mean Platelet Volume 9.3 fl (7.4-10.4); Monocytes Absolute Auto 0.6 K/mm3 (0.1-0.6); Monocytes Percent Auto 8.5 % (2.6-8.5); Neutrophils Absolute Auto 4.8 K/mm3 (1.3-6.7); Neutrophils Percent Auto 63.3 % (45.5-73.1); Platelet Count Result 346 k/mm3 (150-375); Red Blood Count 4.14 M/mm3 (4.6-6.20); Red Cell Distribution Width 13.6 % (11.5-14.5); White Blood Count 7.5 K/mm3 (4.5-10.0)
--- OUTSIDE RECORDS SUMMARY | 2024-06-20 12:13 | XMS_ITS | Continuity of Care Document ---
Author Organization [facility] Address [address] [place] [address] Phone Care Team Providers Care Meter/Relay Technician Name Role Phone Marion Mendez Unavailable Unavailable Advance Directives Directive Yes / No Effective Date File Name No Information Encounters Encounter Description Practice Location Reason(s) For Visit Diagnoses Date Provider Providers Copied on Encounter [facility], [address], [place], [place], [id number], [place] tel:[phone] [facility] [place] No Information Apr-0 8-200 2 Vanessa Schultz. [address] , [address], [place], [address], [place]. tel:[phone] Family History Family Member Type Diagnosis Age At Onset No Information Payers Payer name Insurance type Covered alliance party ID Authoriza tion(s) No Information Social History Type Description Quantity Date Captured Comments Sex Male Smoking Status No Information Chief Complaint And Reason For Visit No Information Reason For Referral Reason For Referral No Information History Of Present Illness Encounter Date Complaint History Of Prese nt Illness No Information Functional Status Date Functional Assessmen t No Information Instructions Date Instruction Additional Infor mation No Information Assessments Type Assessment Date No Information Patient Care Teams Name Effective Dates (start - stop) Status Members No Information
--- OUTSIDE RECORDS SUMMARY | 2024-06-20 12:13 | XMS_ITS | Referral Summary ---
Author Organization [facility] Address [address] [place] [address] Care Team Providers Care Doctor Of Nurse Anesthesia Practice Name Role Phone Agus Wong DO Primary Care Provider [phone] Allergies Active Allergy Reactions Criticality Noted Date Comments Dill Oil Anaphylaxis,Rash,Sto mach upset High 03/14/2021 Penicillins Itching Low 12/16/2015 As a child and an adult Medications ibuprofen (ibuprofen) 200 mg tab/cap Take 400 mg by mouth as needed for pain 6 Active loratadine (CLARITIN) 10 mg tabletIndicatio ns:Allergic Rhinitis Take 10 mg by mouth 2 (two) times a day 6 Active naproxen (NAPROSYN) 375 mg tabletIndicatio ns:Pain Take 375 mg by mouth 2 (two) times a day 1 Active omeprazole (PriLOSEC) 40 mg capsuleIndicati ons:acid reflux Take 40 mg by mouth nightly 1 Active SUMAtriptan (IMITREX) 50 mg tabletIndicatio ns:Migraine Take 50 mg by mouth as needed 6 Active topiramate (TOPAMAX) 100 mg tabletIndicatio ns:Migraine Prevention Take 100 mg by mouth 2 (two) times a day 1 Active Anoro Ellipta 62.5-25 mcg/actuation blister with deviceIndicatio ns:Bronchospasm Prevention with COPD,pre Inhale 1 puff every morning 1 Active acetaminophen (TYLENOL) 500 mg tablet Take 1,000 mg by mouth as needed for pain Active multivitamin capsuleIndicati ons:Vitamin Deficiency Prevention Take 1 capsule by mouth every morning Active amitriptyline (ELAVIL) 100 mg tabletIndicatio ns:nerve pain Take 100 mg by mouth 2 (two) times a day Active albuterol HFA (PROVENTIL HFA,VENTOLIN HFA,PROAIR HFA) 90 mcg/actuation inhaler INHALE 1 PUFF BY MOUTH EVERY 4 TO 6 HOURS 1 Active amitriptyline (ELAVIL) 50 mg tablet Take 50 mg by mouth nightly 1 Active oxyCODONE (ROXICODONE) 5 mg immediate release tabletIndicatio ns:Pain Take 1 tablet (5 mg total) by mouth every 4 (four) hours as needed for pain 40 tablet 2 Active docusate sodium (DOK) 100 mg tabletIndicatio ns:constipation Take 1 tablet (100 mg total) by mouth 2 (two) times a day as needed for constipation 40 tablet 1 2 Active sildenafiL (VIAGRA) 50 mg tablet TAKE 1 TABLET BY MOUTH DAILY NEEDED 30 MINUTES TO 4 HOURS BEFORE SEXUAL ACTIVITY 2 Active tiZANidine (ZANAFLEX) 4 mg tablet TAKE 1 TABLET BY MOUTH TWICE DAILY NEEDED FOR MUSCLE SPASMS 3 Active Active Problems Problem Noted Date Diagnosed Date AC separation, type 5, right, initial encounter 03/14/2021 Overview (03/14/2021): Added automatically from request for surgery [id number] 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 Never 03/31/2021 Average Number of Drinks Not on file 021 Frequency of Binge Drinking Not on file 03/10 Sex and Gender Information Value Date Recorded Sex Assigned at Not on file Legal Sex Male 4:15 PM TAPE CONTROL SKIN OR SPAR MILL OPERATOR Gender Identity Not on file Sexual Orientation Not on file Last Filed Vital Signs Vital Sign Reading Time Taken Comments Blood Pressure 136/86 04/19/2021 3:30 PM TAPE CONTROL SKIN OR SPAR MILL OPERATOR Pulse 79 04/19/2021 3:30 PM TAPE CONTROL SKIN OR SPAR MILL OPERATOR Temperature 36.6 C (97.9 F) 04/19/2021 3:30 PM TAPE CONTROL SKIN OR SPAR MILL OPERATOR Respiratory Rate 23 04/19/2021 3:30 PM TAPE CONTROL SKIN OR SPAR MILL OPERATOR Oxygen Saturation 96% 04/19/2021 3:30 PM TAPE CONTROL SKIN OR SPAR MILL OPERATOR Inhaled Oxygen Concentration - - Weight 68.9 kg (152 lb) 12/02/2021 12:49 PM CDT Height 181.6 cm (5' 11.5 ) 12/02/2021 12:49 PM C DT Body Mass Index 20.9 12/02/2021 12:49 PM CDT Plan of Treatment Not on file Medical Devices Implanted Type Area Photocopying Machine Operator Device Identifier Shelf Expiration Date Model / Serial / Lot Jaguar Endoscopy [id number] 6mm 18-23cm 1 Strand Frozen Graft Soft Tissue Semitendinosus - [id number] Implanted:Qty: 1 on 04/19/2021 by Walter Jacobo MD at [facility] Right: Shoulder [place] [facility] 02/10/2026 [id number] / / [id number] Insurance [facility] Care Teams Doctor Of Nurse Anesthesia Practice Relationship Specialty Start Date End Date Agus Wong DO PCP - General Internal Medicine 03/08/21
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
== END 2024-06-20 11:29 | disposition home or self-care (01) ==
LOC: ANHSURGERY 11:34
PROVIDERS: PCP Nurse Practitioner; Visit Provider Surgery
DX: K40.90 Unilateral inguinal hernia, without obstruction or gangrene, not specified as recurrent (principal)
CPT/HCPCS: 36415; 85025; 86850; 86900; 86901

== ENCOUNTER 2024-06-25 01:17 | Day surgery (SDC) | payer OTHER, SELFPAY ==
[2024-06-20 10:09] VITALS: BMI 21.7
--- NOTE | 2024-06-20 10:09 | PC.NURSE ---
Report to the Outpatient Waiting Room, entrance under the green pavilion located off [address], at time _0930_ on date _[id number]_. Planned Procedure Time: _1130_.? Time changes happen often and if your time is changed the preop area will call you the afternoon before. - You and your visitor will be asked to self-screen and do not enter if you have any COVID symptoms. Please call surgeon if you need to reschedule. - A mask is optional within the hospital at this time. Patients may have clear liquids (water, carbonated beverages, clear teas, apple juice) until 3 hours prior to surgery with a maximum of 20 ounces. - No food from midnight until time of surgery and no smoking, or chewing tobacco (or any form of nicotine). No chewing gum, candy or mints. Take only the following medications with a SIP of water on the morning of surgery: ___Anoro inhaler and if needed may use albuterol DO NOT STOP ANY OF YOUR OTHER PRESCRIPTION MEDICATIONS PRIOR TO SURGERY EXCEPT THE FOLLOWING Hold all vitamins and supplements for 3 days per anesthesiologist. Medications to discontinue per physician Please ask Dr Elder's off if OK to continue naproxen as needed. Date to take last dose Please no make-up, nail bengali, hairspray, perfume, deodorant, or body powder the day of surgery.? No jewelry (including any body piercings) or valuables the day of surgery, leave them at home.? Please take a shower or bath the night before, or the morning of, surgery with an antibacterial soap.? Wear comfortable, loose fitting clothing.? - Jewelry must be removed prior to entering the operating room.? Rings and piercings that are not removed may be cut off. - The hospital will not accept responsibility for valuables.? - Please leave all valuables, including medications, at home the day of surgery. If you are going home after surgery, a licensed log driver must drive you home.? - NO public transportation without another adult if you receive anesthesia. - We recommend that an adult stay with you for 24 hours following discharge. - We also recommend that you do not drive, make important decision, drink alcoholic beverages, or take any drugs that were not prescribed by your health care provider for at least 24 hours after your discharge time. Follow any additional instructions given to you from your surgeon. Telephone instructions given to __Nehemiah__and asked if any additional questions and then verbalized understanding. Patient advised to call surgeon office or pre surgery nurse liaison [phone] if any additional questions.
[2024-06-25] VITALS (9 sets, daily range): BP systolic 116–157; BP diastolic 69–89; PULSE 63–88; RESP 14–18; TEMP 36.6; O2SAT 94–100
--- OUTSIDE RECORDS SUMMARY | 2024-06-25 01:20 | XMS_ITS | Referral Summary ---
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 [...] on file Legal Sex Male 4:15 PM FILM MASKER Gender Identity Not on file Sexual Orientation Not on file Last Filed Vital Signs Vital Sign Reading Time Taken Comments Blood Pressure 136/86 04/19/2021 3:30 PM FILM MASKER Pulse 79 04/19/2021 3:30 PM FILM MASKER Temperature 36.6 C (97.9 F) 04/19/2021 3:30 PM FILM MASKER Respiratory Rate 23 04/19/2021 3:30 PM FILM MASKER Oxygen Saturation 96% 04/19/2021 3:30 PM FILM MASKER Inhaled Oxygen Concentration - - Weight 68.9 kg (152 lb) 12/02/2021 12:49 PM CDT Height 181.6 cm (5' 11.5 ) 12/02/2021 12:49 PM C DT Body Mass Index 20.9 12/02/2021 12:49 PM CDT Plan of Treatment Not on file Medical Devices Implanted Type Area Jackscrew Worker Device Identifier Shelf Expiration Date Model / Serial / Lot Jaguar Endoscopy [id number] 6mm 18-23cm 1 Strand Frozen Graft Soft Tissue Semitendinosus - [id number] Implanted:Qty: 1 on 04/19/2021 by Walter Jacobo MD at [facility] Right: Shoulder [place] [facility] 02/10/2026 [id number] / / [id number] Insurance [facility] Care Teams Lead Printer Relationship Specialty Start Date End Date Agus Wong DO PCP - General Internal Medicine 03/08/21
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
--- OUTSIDE RECORDS SUMMARY | 2024-06-25 01:20 | XMS_ITS | Continuity of Care Document ---
Author Organization [facility] Address [address] [place] [address] Phone Care Team Providers Care Conventions Reservationist Name Role Phone Marion Mendez Unavailable Unavailable Advance Directives Directive Yes / No Effective Date File Name No Information Encounters Encounter Description Practice Location Reason(s) For Visit Diagnoses Date Provider Providers Copied on Encounter [facility], [address], [place], [place], [id number], [place] tel:[phone] [facility] [place] No Information Apr-0 8-200 2 Vanessa Schultz. [address] , [address], [place], [address], [place]. tel:[phone] Family History Family Member Type Diagnosis Age At Onset No Information Payers Payer name Insurance type Covered constitution party ID Authoriza tion(s) No Information Social [...]
[2024-06-25] MEDS: LACTATED RINGERS 1,000 ML 30 ML IV CONT ×2 (10:00→14:58)
[2024-06-25] MEDS: ACETAMINOPHEN 500 MG TABLET 1000 MG PO (10:05)
[2024-06-25] MEDS: KETOROLAC 15 MG/ML VIAL (*BKC) IV PUSH (10:05)
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
--- NOTE | 2024-06-25 12:00 | WPDHPUPDATE1 ---
History and Physical Update Update Date/Time: 06/25/24 12:00 History and Physical has been reviewed, including an updated exam of the patient. There are NO changes in the patient's condition. Risks, benefits, and alternatives have been discussed and questions answered. Patient agrees to proceed with procedure.
[2024-06-25] MEDS: ceFAZolin 2 GM/D5W 50 ML 2 GM/50 ML BAG IVPB (12:21)
[2024-06-25] MEDS: BUPIVACAINE/EPINEPHRINE 0.5% 30 ML VIAL INFILTRATE (13:01)
--- NOTE | 2024-06-25 14:33 | P.OP_ITS ---
Procedure Note - Detailed Date of Procedure 06/25/24 Pre-op Diagnosis Right Inguinal Hernia Post-op Diagnosis Same Procedure Performed Robotic laparoscopic repair right inguinal hernia with mesh Surgeon Eagle Elder MD Staff Veterinarian Evangelina PAEZ Anesthesia General and Local Indications Patient has noticed a large bulge in the right groin that extends into the scrotum. It has been there for 3-4 months and is sometimes painful. It is reducible if he lays down. After evaluation in the office, he is taken to surgery now for robotic laparoscopic right inguinal hernia repair with mesh Findings This was a large indirect hernia. The hernia sac went down into the scrotum. With the scrotal extension, the dissection was more bloody than usual. Extra- large mid 3DMax mesh was used Description of Procedure Patient was taken to the operating room and induced into general anesthesia. The abdomen is prepped and draped. Trocars were placed in the usual fashion starting with an applied Medical optical trocar in the left upper quadrant and then placing the robotic trocars under direct visualization. The optical trocar was switched out for robotic trocar under direct visualization as well. Patient was placed in Trendelenburg. The mesh and suture material was placed in the area of the hernia. Ileoinguinal nerve block was placed on the right side. The robotic arms were brought into the field. The camera was docked and targeted. The operating arms were fitted with instruments and positioned in the area of the inguinal hernia. The surgeon then went to the robotic console. A peritoneal flap was created anteriorly over the inguinal canal structures. Flap was developed broadly. Dissection medially was carried out just beneath the rectus muscle. We dissected down and exposed Thomas's ligament. Dissection in the area of Thomas's ligament revealed the pubis. We dissected on past the pubis to the patient's left for about 2 cm. This dissection was then carried anteriorly to expose at least a couple cm of the patient's left rectus muscle. Cautery was used for hemostasis. The urinary bladder was fairly full in was easily identified. I then went laterally and continued the lateral dissection so that it was carried posteriorly to an adequate extent. I then turned my attention to the hernia sac. With traction on the hernia sac, I began to divide the transversalis sling. The sac was very large. I retracted the sac anterior 0 medially and carefully dissected tissue layers and eventually the vas deferens and spermatic cord vessels. I created a plane between the edge of the hernia sac and the cord structures. I then continued retraction anteriorly on the hernia sac. Cautery and dissection anteriorly was carried out and we slowly reduced the hernia sac. Care was taken to avoid injury to the cord structures. These were carefully dissected off the sac as we progressed. Some peritoneal holes were made in the hernia sac. There was also some bleeding from dissection of the cord structures. The sac itself was quite large but eventually we reached the into the hernia sac and I was able to dissect this off the cord structures and finished dissecting the sac away from the cord structures entirely. Cautery or bipolar had been used for hemostasis. Once the sac had been completely reduced, I then continued dissection of the peritoneum posteriorly so there would be plenty of room for the posterior edge of the hernia mesh. I then used the 17 x 12 cm extra-large right-sided 3DMax mesh and positioned it over the inguinal canal structures. When it was in appropriate position, I used 3-0 Vicryl suture to secure it to Thomas's ligament. I also used 3-0 Vicryl to suture it to the anterior abdominal wall with a stitch on the lateral and medial side. The mesh appeared to be in good position. I then used 3-0 V lock suture to close the peritoneal incision starting laterally and proceeding medially. I was able to incorporate the holes in the peritoneum into the closure so there were no holes to close once the incision had been reapproximated. I reviewed the area of the repair. All looked good. The 2 needles were removed. Instruments were removed and the robot was undocked. Trocars were removed. Skin incisions were closed with running 4-0 Monocryl skin suture. The wounds were dressed with Exofin surgical adhesive. Straight urinary catheterization was carried out as the patient's bladder was pretty full. 100 cc was drained from the bladder. The scrotum was wrapped with a 3 in Stefan wrap. Scrotal support was applied. Patient was awakened and taken to recovery in good condition. Sponge and needle counts were correct x2. Implants Extra-large 17 x 12 cm right-sided mid 3D max mesh Estimated Blood Loss -20 Urine Output -100 Drains No Packing No Pathology None sent Complications None Condition Stable Disposition PACU [facility] Billing Surgery - Charge Forward: Surgery Billing (Robotic laparoscopic repair right inguinal hernia with mesh.)
[2024-06-25] MEDS: fentaNYL CITRATE INJ (*CRX) 100 MCG/2 ML VIAL 25 MCG IV PUSH ×5 (15:09→15:34)
[2024-06-25] MEDS: oxyCODONE HCL (*CRX) 5 MG TAB IR PO (16:07)
[2024-06-25] MEDS: ONDANSETRON INJ 4 MG/2 ML VIAL IV PUSH (16:42)
== END 2024-06-25 17:28 | disposition home or self-care (01) ==
PROVIDERS: PCP Nurse Practitioner; Visit Provider Surgery
PROC: 8E0Y4CZ Robotic Assisted Procedure of Lower Extremity, Percutaneous Endoscopic Approach (ICD-10-PCS; CPT 49650; principal; 2024-06-25 11:30)
DX: K40.90 Unilateral inguinal hernia, without obstruction or gangrene, not specified as recurrent (principal); J44.9 Chronic obstructive pulmonary disease, unspecified; K21.9 Gastro-esophageal reflux disease without esophagitis; F17.220 Nicotine dependence, chewing tobacco, uncomplicated; F12.90 Cannabis use, unspecified, uncomplicated
CPT/HCPCS: 49650; S2900; A9270; C1781; J0690; J1100; J1171; J1885; J2250; J2405; J2704; J3010; J7030; J7120

== ENCOUNTER 2024-08-13 12:19 | Outpatient (CLI) | payer OTHER, SELFPAY ==
--- NOTE | ~2024-08-13 | US_ITS ---
TESTICULAR ULTRASOUND (Doppler ultrasound interrogation techniques used as needed for this exam.) Ordering provider: Eagle Elder MD History: . N50.89 - Other specified disorders of the male genital or... . Comparison: None. FINDINGS: TESTICLES: Normal in size. The right measures 2.9x 3.0x 3.6 cm and the left measures 4.5x 2.3x 2.9 cm . Normal echogenicity bilaterally without mass lesion. Normal Doppler flow bilaterally. EPIDIDYMIDES: Normal bilateraly. HYDROCELE: Moderate right and small left. VARICOCELE: None. OTHER ABNORMALITY: Thickened spermatic cord is seen in the right side with increased vascularity whic h may indicate inflammatory changes. Clinical correlation and follow-up advised IMPRESSION: Thickened right spermatic cord with increased vascularity which may indicate inflammatory changes. Cl inical correlation and follow-up advised. Bilateral hydrocele. Otherwise, normal testicular ultrasound. Reviewed, dictated and finalized at location A. IMPRESSION: Thickened right spermatic cord with increased vascularity which may indicate in flammatory changes. Clinical correlation and follow-up advised. Bilateral hydrocele. Otherwise, normal testicular ultrasound.
--- OUTSIDE RECORDS SUMMARY | 2024-08-13 12:32 | XMS_ITS | Continuity of Care Document ---
Author Organization [facility] Address [address] [place] [address] Phone Care Team Providers Care Skilled Nursing Facilities Professional Name Role Phone Marion Mendez Unavailable Unavailable Advance Directives Directive Yes / No Effective Date File Name No Information Encounters Encounter Description Practice Location Reason(s) For Visit Diagnoses Date Provider Providers Copied on Encounter [facility], [address], [place], [place], [id number], [place] tel:[phone] [facility] No Information Apr-0 8-200 2 Vanessa Schultz. [address] [facility] [facility] [address] , [address], [place], [address], [place]. tel:[phone] Family History Family Member Type Diagnosis Age At Onset No Information Payers Payer name Insurance type Covered republican ID Authoriza tion(s) No Information Social History [...]
--- OUTSIDE RECORDS SUMMARY | 2024-08-13 12:32 | XMS_ITS | Referral Summary ---
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 Gender Identity Not on file Sexual Orientation Not on file Last Filed Vital Signs Vital Sign Reading Time Taken Comments Blood Pressure 136/86 04/19/2021 3:30 PM STRIPPER AND PRINTER Pulse 79 04/19/2021 3:30 PM STRIPPER AND PRINTER Temperature 36.6 C (97.9 F) 04/19/2021 3:30 PM STRIPPER AND PRINTER Respiratory Rate 23 04/19/2021 3:30 PM STRIPPER AND PRINTER Oxygen Saturation 96% 04/19/2021 3:30 PM STRIPPER AND PRINTER Inhaled Oxygen Concentration - - Weight 68.9 kg (152 lb) 12/02/2021 12:49 PM CDT Height 181.6 cm (5' 11.5 ) 12/02/2021 12:49 PM C DT Body Mass Index 20.9 12/02/2021 12:49 PM CDT Plan of Treatment Not on file Medical Devices Implanted Type Area Dust Operator Device Identifier Shelf Expiration Date Model / Serial / Lot [employer] [id number] 6mm 18-23cm 1 Strand Frozen Graft Soft Tissue Semitendinosus - [id number] Implanted:Qty: 1 on 04/19/2021 by Walter Jacobo MD at [facility] Right: Shoulder [employer] 02/10/2026 [id number] / / [id number] Insurance [facility] Care Teams Zoo Veterinarian Relationship Specialty Start Date End Date Agus Wong DO PCP - General Internal Medicine 03/08/21
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
== END 2024-08-13 12:20 | disposition home or self-care (01) ==
PROVIDERS: PCP Nurse Practitioner; Visit Provider Surgery
DX: N50.89 Other specified disorders of the male genital organs (principal); N43.3 Hydrocele, unspecified
CPT/HCPCS: 76870; 93976